=== PATIENT | male | born 1960 | race Caucasian/White ===

== ENCOUNTER 2019-01-21 10:00 | Emergency (ER) | payer OTHER ==
[2019-01-21] MEDS ORDERED: Tetan/Diph/Pertus SYR(Tdap)* 0.5 ML SYR(BOOSTRIX) use SYR IM ONE (10:29)
--- NOTE | 2019-01-21 10:36 | ED ---
Upper Extremity Pain - HPI Summary HPI Summary: This patient is a 58 year old M presenting to ED with a chief complaint of smashed right hand index and middle fingers since this morning, described as crushing. Patient states he was working on his deck and something slipped while his hand was underneath a pole and rock, crushing his hand. The patient was unable to remove the hand and his brother had to lift the object. Patient was wearing a leather glove. Patient states he has sensation in his hand and can bend the fingers slightly. Patient rates the pain 6/10 in severity. Symptoms aggravated by nothing. Symptoms alleviated by nothing. Patient reports bruising. Patient unsure of his last tetanus vaccine. No PMHx of HTN, DM, or asthma and no previous surgeries. FHx of DM from father. Patient does not drink , smoke tobacco, or use substances. 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[employer], Traumatic, Still Present Timing: Constant, Lasting Hours - 1 hour ago Severity Initially: Moderate Severity Currently: Moderate Pain Location: Hand - Right, Finger - Right mdidle and index finger Aggravating Factor(s): Nothing Alleviating Factor(s): Nothing Associated Signs & Symptoms: Positive: Bruising - Allergies/Home Medications Allergies/Adverse Reactions: Allergies Allergy/AdvReac Type Severity Reaction Status Date / Time bee venom protein (honey bee) Allergy Swelling Verified 01/21/19 10:17 PMH/Surg Hx/FS Hx/Imm Hx Previously Healthy: No Endocrine/Hematology History: Denies: Hx Diabetes Cardiovascular History: Denies: Hx Hypertension, Hx Pacemaker/ICD Respiratory History: Denies: Hx Asthma Sensory History: Denies: Hx Hearing Aid Psychiatric History: Denies: Hx Panic Disorder - Surgical History Surgery Procedure, Year, and Place: None Infectious Disease History: No Infectious Disease History: Denies: Traveled Outside the [place] in Last 30 Days - Family History Known Family History: Positive: Diabetes - Father - Social History Alcohol Use: None Hx Substance Use: No Substance Use Type: Reports: None Hx Tobacco Use: No Smoking Status (MU): Never Smoked Tobacco Review of Systems Musculoskeletal: Other - Right index and middle finger pain Positive: Bruising - Right index and middle finger All Other Systems Reviewed And Are Negative: Yes Physical Exam - Summary Physical Exam Summary: VITAL SIGNS: Reviewed. GENERAL: Patient is a well-developed and nourished male who is lying comfortable in the stretcher. Patient is not in any acute respiratory distress. HEAD AND FACE: No signs of trauma. No ecchymosis, hematomas or skull depressions. No sinus tenderness. EYES: PERRLA, EOMI x 2, No injected conjunctiva, no nystagmus. EARS: Hearing grossly intact. Ear canals and tympanic membranes are within normal limits. MOUTH: Oropharynx within normal limits. NECK: Supple, trachea is midline, no adenopathy, no JVD, no carotid bruit, no c- spine tenderness, neck with full ROM. CHEST: Symmetric, no tenderness at palpation LUNGS: Clear to auscultation bilaterally. No wheezing or crackles. CVS: Regular rate and rhythm, S1 and S2 present, no murmurs or gallops appreciated. ABDOMEN: Soft, non-tender. No signs of distention. No rebound no guarding, and no masses palpated. Bowel sounds are normal. EXTREMITIES: Superficial lacerations in right index and middle fingers. Good capillary refill and good sensation. FROM in all major joints, no edema, no cyanosis or clubbing. NEURO: Alert and oriented x 3. No acute neurological deficits. Speech is normal and follows commands. SKIN: Dry and warm Triage Information Reviewed: Yes Vital Signs On Initial Exam: Initial Vitals Temp Pulse Resp BP Pulse Ox 96.9 F 61 16 145/84 99 01/21/19 10:02 01/21/19 10:02 01/21/19 10:02 01/21/19 10:02 01/21/19 10:02 Vital Signs Reviewed: Yes Procedures - Splinting Right Upper Extremity Splint: ulnar - Ulnar guttar splint. Patient was neurovascularly intact before the splint and neurovascularly intact after the splint. - Laceration/Wound Repair 5 Location: upper extremity - Right hand Anesthesia: 1.0%, Lido Length, Depth and Shape: Superficial, 1.5cm Betadine Prep?: No - Normal saline Suture Type: Nylon Diagnostics - Vital Signs Vital Signs Temp Pulse Resp BP Pulse Ox 01/21/19 10:02 96.9 F 61 16 145/84 99 - Laboratory Result Diagrams: 01/21/19 10:00 01/21/19 10:29 Lab Statement: Any lab studies that have been ordered have been reviewed, and results considered in the medical decision making process. - Radiology Right Hand XR Radiology Interpretation Completed By: Radiologist Summary of Radiographic Findings: 1. SOFT TISSUE SWELLING AND SMALL AMOUNT OF GAS IN THE SECOND FINGER. 2. TRANSVERSE IMPACTED FRACTURE OF THE DISTAL FIFTH METACARPAL, AGE INDETERMINATE. Dr. Gonzalez has reviewed this radiology report. Re-Evaluation - Re-Evaluation First Eval Re-Evaluation Time: 10:49 Comment: Patient informed of his Right Hand XR results Second Eval Re-Evaluation Time: 11:58 Comment: Splint and sutures applied. Discussed discharge plan. Patient agrees and understands this plan. Course/Dx - Course Assessment/Plan: This is a 58-year-old male who presents to the emergency department with a chief complaint of right hand pain. He reports that he was trying to lift a deck and something slipped and his right index and middle finger got caught in between a rock and the tech. He reports that he was wearing a glove. During the physical exam the patient is able to have full range of motion of the fingers, has good sensation and good capillary refill. Also he has small superficial lacerations. Right hand X ray IMPRESSION: 1. SOFT TISSUE SWELLING AND SMALL AMOUNT OF GAS IN THE SECOND FINGER. 2. TRANSVERSE IMPACTED FRACTURE OF THE DISTAL FIFTH METACARPAL, AGE INDETERMINATE. I discussed case with Dr. Orozco from orthopedics and he recommends for the patient to be given antibiotics, per minute and Place him in a finger splint and ulnar gutter splint. Patient was given Rocephin, will be discharged with Keflex and the follow-up with orthopedics on Wednesday. Suture was repaired. Tetanus vaccine was also given. - Diagnoses Provider Diagnoses: Fracture of fifth metacarpal bone, Laceration, Metacarpal bone fracture, Finger fracture - Physician Notifications Discussed Care of Patient With: Lamin Orozco Time Discussed With Above Provider: 11:00 Instructed by Provider To: Other - Discussed patient right hand XR with Dr. Orozco, orthopedics who recommended putting in an ulnar gutter splint. Dr. Orozco will see the patient on Wednesday. Discharge - Sign-Out/Discharge Documenting (check all that apply): Patient Departure - Discharge Patient Received Moderate/Deep Sedation with Procedure: No - Discharge Plan Condition: Stable Disposition: HOME Prescriptions: Cephalexin CAP* [Keflex CAP*] 500 mg PO QID #28 cap Hydrocodone/Acetaminophen [[place] 5-325 Tablet] 1 each PO Q6H PRN #10 tablet MDD 4 PRN Reason: Pain Ibuprofen TAB* [Motrin TAB* 600 MG] 600 mg PO Q8H PRN #20 tab PRN Reason: Pain Patient Education Materials: Laceration (ED), Finger Fracture (ED) Referrals: Lamin Orozco MD [Medical Doctor] - 2 Days Additional Instructions: Follow-up with Dr. Orozco, orthopedics, in 2 days. RETURN THE ER FOR CHANGING OR WORSENING SYMPTOMS. - Billing Disposition and Condition Condition: STABLE Disposition: Home - Attestation Statements Document Initiated by Scribe: Yes Documenting Scribe: Tejas Christine Provider For Whom Johnibe is Documenting (Include Credential): Tommy Gonzalez MD Scribe Attestation: Tejas Blake, scribed for Tommy Gonzalez MD on 01/21/19 at 2121. Scribe Documentation Reviewed: Yes Provider Attestation: The documentation as recorded by the Tejas mejía accurately reflects the service I personally performed and the decisions made by Tommy mckenzie MD Status of Scribe Document: Viewed
[2019-01-21] MEDS ORDERED: ED cefTRIAXone 1 GM/50 ML 1 GM/50 ML PREMIX.SET IVPB ONE (10:56)
[2019-01-21] MEDS ORDERED: cefTRIAXone(*) 1 GM ADVAN/BAG ONE (11:04)
[2019-01-21 11:35] LABS: Albumin 4.6 g/dL (3.2-5.2); Albumin/Globulin Ratio 1.8 (1-3); BUN/Creatinine Ratio 16.2 (8-20); EGFR African American 76.9 (>60); EGFR Non-African American 63.6 (>60); Globulin 2.6 g/dL (2-4); Potassium 4.7 mmol/L (3.5-5.0); Total Bilirubin 0.8 mg/dL (0.2-1.0); Total Protein 7.2 g/dL (6.4-8.9)
[2019-01-21 12:35] VITALS: BP 0/0
[2019-01-21 13:23] LABS: ABS Lymphocytes 1.1 10^3/ul (1.0-4.8); ABS Monocytes 0.4 10^3/ul (0-0.8); ABS Neutrophils 5.3 10^3/ul (1.5-7.7); Eosinophil % 0.4 %; Hematocrit 48 % (42-52); Hemoglobin 16.6 g/dL (14.0-18.0); Lymphocyte % 16.1 %; Mean Corpuscular HGB Conc 35 g/dL (31-36); Mean Corpuscular Hemoglobin 32 pg (27-31); Mean Corpuscular Volume 93 fL (80-94); Mean Platelet Volume 7.6 fL (7.4-10.4); Platelet Count 333 10^3/uL (150-450); Red Blood Count 5.21 10^6 /uL (4.18-5.48); Red Cell Distribution Width 13 % (10.5-15); White Blood Count 6.9 10^3/uL (3.5-10.8)
== END 2019-01-21 12:33 | disposition home or self-care (01) ==
LOC: ED 10:00
DX: S67.190A Crushing injury of right index finger, initial encounter (principal); S67.196A Crushing injury of right little finger, initial encounter; S67.192A Crushing injury of right middle finger, initial encounter; S67.194A Crushing injury of right ring finger, initial encounter; S62.306A Unspecified fracture of fifth metacarpal bone, right hand, initial encounter for closed fracture; W23.0XXA Caught, crushed, jammed, or pinched between moving objects, initial encounter; Y92.008 Other place in unspecified non-institutional (private) residence as the place of occurrence of the external cause
CPT/HCPCS: 36415; 80053; 82550; 85025; 90471; 90715; 96374; 99283; J0696